=== PATIENT | female | born 1975 | race Caucasian/White ===

== ENCOUNTER → 2016-10-20 | Outpatient (CLI) | payer BC ==
--- NOTE | 2016-10-23 10:22 | MM ---
Reason for exam: screening (asymptomatic). Last mammogram was performed 1 year ago. History: Patient is nulliparous. Family history of breast cancer in paternal grandmother at age 80 and breast cancer in maternal grandmother. Benign US RT VAD breast biopsy of the right breast, August 14, 2011. Taking hormonal contraceptives for 17 years beginning at age 19. Physical Findings: A clinical breast exam by your physician is recommended on an annual basis and results should be correlated with mammographic findings. MG 3D Screening Mammo W/Cad Bilateral CC and MLO view(s) were taken. Prior study comparison: October 15, 2015, bilateral MG 3d screening mammo w/cad. September 15, 2014, bilateral MG screening mammo w CAD. Benign calcifications.There is chronic nodularity bilaterally. Reduction mammoplasty changes. No significant changes when compared with prior studies. ASSESSMENT: Benign, BI-RAD 2 RECOMMENDATION: Routine screening mammogram of both breasts in 1 year.
== END | disposition home or self-care (01) ==
LOC: RADMAMWWP 16:20
PROVIDERS: ATTEND Obstetrics & Gynecology
DX: Z12.31 Encounter for screening mammogram for malignant neoplasm of breast (principal); Z80.3 Family history of malignant neoplasm of breast
CPT/HCPCS: 77063; G0202

== ENCOUNTER → 2017-11-20 | Outpatient (CLI) | payer BC ==
--- NOTE | 2017-11-21 10:02 | MM ---
Reason for exam: screening (asymptomatic). Last mammogram was performed 1 year and 1 month ago. History: Patient is nulliparous. Family history of breast cancer in paternal grandmother at age 80 and breast cancer in maternal grandmother. Benign US RT VAD breast biopsy of the right breast, August 14, 2011. Taking hormonal contraceptives for 17 years beginning at age 19. Physical Findings: A clinical breast exam by your physician is recommended on an annual basis and results should be correlated with mammographic findings. MG 3D Screening Mammo W/Cad Bilateral CC and MLO view(s) were taken. Prior study comparison: October 20, 2016, bilateral MG 3d screening mammo w/cad. October 15, 2015, bilateral MG 3d screening mammo w/cad. The breast tissue is heterogeneously dense. This may lower the sensitivity of mammography. Focal asymmetry inner left CC view 3.9cm from nipple. This finding is changed when compared with previous exams. ASSESSMENT: Incomplete: need additional imaging evaluation, BI-RAD 0 RECOMMENDATION: Special view mammogram of the left breast. If lesion persists on supplemental views, image directed ultrasound is recommended. [facility] will attempt to contact patient to return for supplemental views and ultrasound if indicated.
== END | disposition home or self-care (01) ==
LOC: RADMAMWWP 07:25
PROVIDERS: ATTEND Obstetrics & Gynecology
DX: Z12.31 Encounter for screening mammogram for malignant neoplasm of breast (principal); Z80.3 Family history of malignant neoplasm of breast
CPT/HCPCS: 77063; 77067

== ENCOUNTER → 2017-11-28 | Outpatient (CLI) | payer BC ==
--- NOTE | 2017-11-28 09:19 | MM ---
Reason for exam: additional evaluation requested from abnormal screening. Last mammogram was performed less than 1 month ago. History: Patient is nulliparous. Family history of breast cancer in paternal grandmother at age 80 and breast cancer in maternal grandmother. Reductions of both breasts, 2016. Benign US RT VAD breast biopsy of the right breast, August 14, 2011. Taking hormonal contraceptives for 17 years beginning at age 19. Physical Findings: Nurse did not find any significant physical abnormalities on exam. MG 3D Work Up W/Cad LT Spot compression CC and ML view(s) were taken of the left breast. Prior study comparison: November 20, 2017, bilateral MG 3d screening mammo w/cad. October 20, 2016, bilateral MG 3d screening mammo w/cad. The breast tissue is heterogeneously dense. This may lower the sensitivity of mammography. No suspicious abnormality. The previous seen medial asymmetry on the left resolves on additional views and appears as fibroglandular tissue. These results were verbally communicated with the patient and result sheet given to the patient on 11/28/17. ASSESSMENT: Benign, BI-RAD 2 RECOMMENDATION: Return to routine screening mammogram schedule for both breasts.
== END | disposition home or self-care (01) ==
LOC: RADMAMWWP 07:32
PROVIDERS: ATTEND Obstetrics & Gynecology
DX: R92.8 Other abnormal and inconclusive findings on diagnostic imaging of breast (principal)
CPT/HCPCS: 77061; 77065

== ENCOUNTER → 2018-11-26 | Outpatient (CLI) | payer BC ==
[2018-11-26 16:25] LABS: Basophils % (A) 0 %; Eosinophils # (A) 0.2 k/uL (0-0.7); Eosinophils % (A) 2 %; HCT 41.9 % (34.0-46.0); HGB 13.6 gm/dL (11.4-16.0); Lymphocytes # (A) 2.1 k/uL (1.0-4.8); Lymphocytes % (A) 23 %; MCH 30.4 pg (25.0-35.0); MCHC 32.3 g/dL (31.0-37.0); Mean Platelet Volume 7.5; Monocytes # (A) 0.4 k/uL (0-1.0); Monocytes % (A) 5 %; Neutrophils # (A) 6.1 k/uL (1.3-7.7); Neutrophils % (A) 68 %; Platelet Count 241 k/uL (150-450); RBC 4.46 m/uL (3.80-5.40); RDW 14.5 % (11.5-15.5)
== END | disposition home or self-care (01) ==
LOC: LABPAT 14:49
PROVIDERS: ATTEND Obstetrics & Gynecology
DX: Z01.812 Encounter for preprocedural laboratory examination (principal); N93.8 Other specified abnormal uterine and vaginal bleeding
CPT/HCPCS: 36415; 85025

== ENCOUNTER 2018-12-09 08:52 | Day surgery (SDC) | payer BC ==
[2018-12-04 15:55] VITALS: BMI 34.2
--- NOTE | 2018-12-06 10:41 | P.HPOB ---
History of Present Illness H&P Date: 12/06/18 Chief Complaint: Menorrhagia This is a 43-year-old 1 para 0010 woman with menorrhagia and dysmenorrhea. She divide desires surgical management in the form of hysteroscopy with NovaSure endometrial ablation. Endometrial biopsy was benign proliferative endometrium. Pelvic ultrasound showed a possible less than 1 cm endometrial polyp versus clot in the endometrial canal. Adnexa otherwise normal. She is not currently sexually active and uses nothing for contrace ption. Review of Systems Constitutional: Denies chills, Denies fever Cardiovascular: Denies chest pain, Denies shortness of breath Respiratory: Denies cough Gastrointestinal: Denies abdominal pain, Denies BRBPR, Denies constipation, Denies diarrhea, Denies nausea, Denies vomiting Genitourinary: Reports dysmenorrhea, Reports menorrhagia, Denies dysuria, Denies flank pain, Denies hematuria Menstruation: Reports menses 1-7 days, Reports period heavy Integumentary: Denies rash Neurological: Denies headaches Psychiatric: Denies anxiety, Denies depression Hematologic/Lymphatic: Denies easy bleeding, Denies easy bruising Past Medical History Past Medical History: Thyroid Disorder Additional Past Medical History / Comment(s): heavy periods History of Any Multi-Drug Resistant Organisms: None Reported Past Surgical History: Breast Surgery Additional Past Surgical History / Comment(s): breast reduction, breast biopsy, cyst removed from back, oral surgery Past Anesthesia/Blood Transfusion Reactions: No Reported Reaction Smoking Status: Current every day smoker - Past Family History Mother Family Medical History: No Reported History Medications and Allergies Home Medications Medication Instructions Recorded Confirmed Type Levothyroxine Sodium [Synthroid] 25 mcg PO DAILY 12/04/18 12/04/18 History Multivitamin [Multivitamins Adult 1 each PO DAILY 12/04/18 12/04/18 History Gummies] [place]-3 Fatty Acids/Fish Oil [Fish 1 each PO DAILY 12/04/18 12/04/18 History Oil 1,000 mg Softgel] Vitamin B Complex 1 each PO DAILY 12/04/18 12/04/18 History Allergies Allergy/AdvReac Type Severity Reaction Status Date / Time doxycycline Allergy Rash/Hives Verified 12/04/18 15:48 Penicillins Allergy Rash/Hives Verified 12/04/18 15:48 sulfamethoxazole Allergy Rash/Hives Verified 12/04/18 15:48 [From Bactrim] trimethoprim [From Bactrim] Allergy Rash/Hives Verified 12/04/18 15:48 adhesive tape AdvReac red skin, Verified 12/04/18 15:48 pulls skin off Exam This is a pleasant, female in no acute distress. HEENT exam is unremarkable. The lungs are clear to auscultation bilaterally and the heart is regular rate and rhythm. The abdomen is slim, soft and nontender with no rebound no guarding and no flank pain. On pelvic examination she has normal female external genitalia without lesions or irritation. The uterus is small, freely mobile and in the midline with no adnexal masses palpable. The extremities are free of any rashes, gross lesions or edema. She is neurologically intact. Mood and affect are appropriate. Assessment and Plan (1) Menorrhagia Status: Acute Code(s): N92.0 - EXCESSIVE AND FREQUENT MENSTRUATION WITH REGULAR CYCLE SNOMED Code(s): 552055066 (2) Dysmenorrhea Status: Acute Code(s): N94.6 - DYSMENORRHEA, UNSPECIFIED SNOMED Code(s): 501558515 Plan: This is a 43-year-old 1 para 0 woman with menorrhagia who desires surgical management in the form of NovaSure endometrial ablation. She is scheduled on 12/09/2018 to undergo diagnostic hysteroscopy with NovaSure endometrial ablation. The patient understands this is not a contraceptive procedure and the is not a 5 following this procedure. If and when she becomes sexually active she will need to use a reliable form of contraception. Patient understands this. Risks of the procedure otherwise were reviewed and include bleeding, transfusion, infection, damage to uterus including uterine perforation with possible damage to intrapelvic structures. The patient and her stances risks and agrees to proceed.
[~2018-12-09 08:52] MED LIST: DEXAMETHASONE SOD PHOSPHATE 10 MG/ML 1 ML VIAL IV ONE; LACTATED RINGERS 1,000 ML IV SCH; LIDOCAINE 1% 20 ML VIAL (10MG/ML) FOR IV START INTRADERMA PRN; MIDAZOLAM 2 MG/2 ML VIAL IV PRN; ONDANSETRON 4 MG/2 ML VIAL IVP ONE; Pre Op ABX Message 1 EACH MISC MISCELLANE ONE
[2018-12-09] MEDS ORDERED: LIDOCAINE 1% INJ 10MG/ML (20 ML MDV) ONE (10:08)
[2018-12-09] MEDS ORDERED: MIDAZOLAM 2 MG/2 ML VIAL ONE (10:08)
[2018-12-09] MEDS ORDERED: KETOROLAC 30 MG/ML 1 ML VIAL ONE (10:08)
[2018-12-09] MEDS ORDERED: fentaNYL (PF) 50 MCG/ML 2 ML AMP ONE (10:08)
[2018-12-09] MEDS ORDERED: PROPOFOL 10 MG/ML 20 ML VIAL IV ONE (10:08)
--- NOTE | 2018-12-09 10:37 | P.OP ---
Date of Procedure: 12/09/18 Preoperative Diagnosis: Menorrhagia Postoperative Diagnosis: Same Procedure(s) Performed: Diagnostic hysteroscopy with NovaSure endometrial ablation Anesthesia: MAC Surgeon: Alondra Albright Estimated Blood Loss (ml): 0 IV fluids (ml): 400 Urine output (ml): 25 Pathology: none sent Condition: stable Disposition: PACU Indications for Procedure: Menorrhagia Operative Findings: Normal appearing endometrial cavity without evidence of gross intracavitary lesions Description of Procedure: After the patient was met in the preoperative holding area and all questions were answered, she was taken to the operating room where anesthetic was administered without incident. She was in positioned, prepped and draped in the dorsal lithotomy position. Appropriate timeout procedure was undertaken. The bladder was drained for approximately 25 mL of clear urine. Weighted speculum was placed in the vagina and the cervix was grasped anteriorly with a single- tooth tenaculum. Uterus is sounded to 8 cm. The cervix was then sequentially dilated with Hegar dilators to allow for passage of the diagnostic hysteroscope. The hysteroscope was introduced and the above findings were noted. The hysteroscope was removed and the cervix was further dilated to allow for passage of the NovaSure ablation device. The device was inserted with a cavity length of 4 cm, width of 3.6 cm. Cavity assessment was passed. The device was enabled for a treatment cycle was 77 seconds at a power of 79 W. Following cessation of the treatment cycle the device was removed. The hysteroscope was reintroduced and complete desiccation of the endometrium was appreciated. All instructions were then removed from the cervix and vagina. No active bleeding was noted from the cervix. The patient was awoken from anesthetic without incident and transported recovery in stable condition. All counts reported to me as correct.
[2018-12-09] MEDS: fentaNYL (PF) 50 MCG/ML 2 ML AMP IV PRN ×2 (10:46→11:07)
[2018-12-09 10:55] VITALS: TEMP 98
[2018-12-09 11:07] VITALS: RESP 16
[2018-12-09] MEDS ORDERED: diphenhydrAMINE 50 MG/ML 1 ML VIAL IVP ONE (11:12)
[2018-12-09 11:48] VITALS: BP 110/75; PULSE 71
== END 2018-12-09 12:19 | disposition home or self-care (01) ==
LOC: OR 08:52
PROVIDERS: ATTEND Obstetrics & Gynecology
DX: N92.0 Excessive and frequent menstruation with regular cycle (principal); N94.6 Dysmenorrhea, unspecified; E07.9 Disorder of thyroid, unspecified; F17.210 Nicotine dependence, cigarettes, uncomplicated; Z79.890 Hormone replacement therapy; Z88.1 Allergy status to other antibiotic agents; Z88.0 Allergy status to penicillin; Z88.2 Allergy status to sulfonamides; Z91.09 Other allergy status, other than to drugs and biological substances
CPT/HCPCS: 81025; 58563; J2250; J1200; J1100; J2405; J2001; J3010; J1885; J2704

== ENCOUNTER → 2018-12-11 | Outpatient (CLI) | payer BC ==
--- NOTE | 2018-12-12 13:13 | MM ---
Reason for exam: screening (asymptomatic). Last mammogram was performed 1 year ago. History: Patient is nulliparous. Family history of breast cancer in paternal grandmother at age 80 and breast cancer in maternal grandmother. Reductions of both breasts, 2016. Benign US RT VAD breast biopsy of the right breast, August 14, 2011. Taking hormonal contraceptives for 17 years beginning at age 19. Physical Findings: A clinical breast exam by your physician is recommended on an annual basis and results should be correlated with mammographic findings. MG 3D Screening Mammo W/Cad Bilateral CC and MLO view(s) were taken. Prior study comparison: November 28, 2017, left breast MG 3d work up w/cad LT. November 20, 2017, bilateral MG 3d screening mammo w/cad. The breast tissue is heterogeneously dense. This may lower the sensitivity of mammography. There is a lobulated 4.8cm right upper inner quadrant mass spanning anterior and middle depth. Ultrasound will be performed. Benign appearing bilateral calcifications. No suspicious abnormality on the left breast. ASSESSMENT: Incomplete: need additional imaging evaluation, BI-RAD 0 RECOMMENDATION: Ultrasound of the right breast. (upper inner quadrant) [facility] will attempt to contact patient to return for ultrasound.
== END | disposition home or self-care (01) ==
LOC: RADMAMWWP 10:10
PROVIDERS: ATTEND Obstetrics & Gynecology
DX: Z12.31 Encounter for screening mammogram for malignant neoplasm of breast (principal); Z80.3 Family history of malignant neoplasm of breast
CPT/HCPCS: 77063; 77067

== ENCOUNTER → 2018-12-26 | Outpatient (CLI) | payer BC ==
--- NOTE | 2018-12-26 13:28 | USB ---
Reason for exam: additional evaluation requested from abnormal screening. History: Patient is nulliparous. Family history of breast cancer in paternal grandmother at age 80 and breast cancer in maternal grandmother. Reductions of both breasts, 2016. Benign US RT VAD breast biopsy of the right breast, August 14, 2011. Taking hormonal contraceptives for 17 years beginning at age 19. Physical Findings: Nurse did not find any significant physical abnormalities on exam. US Breast Workup Limited RT Right limited breast ultrasound including focal area of concern, retroareolar and axilla demonstrates a 0.9 x 1.7 x 0.3cm irregular, hypoechoic lesion at 12 o'clock, this may account for distortion on mammogram, correlate with post mammogramphic clip and a 3.4 x 3.1 x 1.3cm multicystic area with dense tissue at 11 o'clock, 12 o'clock, 1 o'clock and 2 o'clock. These results were verbally communicated with the patient and result sheet given to the patient on 12/26/18. ASSESSMENT: Suspicious, BI-RAD 4 RECOMMENDATION: Ultrasound core biopsy of the right breast. Called Dr. Albright with mammographic findings and has scheduled an appointment for the patient for 02/06/19 at 10:[address] Blackburn. Biopsy scheduled for 01/08/19 at 9 o'clock. PRELIMINARY REPORT CALLED AND FAXED TO DR. BLACKBURN ON 12/26/18.
== END | disposition home or self-care (01) ==
LOC: RADUSWWP 08:15
PROVIDERS: ATTEND Obstetrics & Gynecology
DX: R92.8 Other abnormal and inconclusive findings on diagnostic imaging of breast (principal)

== ENCOUNTER → 2019-01-08 | Day surgery (SDC) | payer BC ==
[2019-01-08 08:16] VITALS: RESP 16
[2019-01-08 09:42] VITALS: BP 102/75; PULSE 63; TEMP 98.2
--- NOTE | 2019-01-08 10:16 | USB ---
EXAMINATION TYPE: US biopsy breast VAD RT, MG diagnostic mammo RT wo CAD DATE OF EXAM: 01/08/2019 CLINICAL HISTORY: R92.8 Abnormal Mammogram. Abnormal ultrasound. TECHNIQUE: Ultrasound guided core biopsy of right breast with clip placement and follow-up diagnostic two-view mammogram. COMPARISON: Prior right breast ultrasound December 26, 2018. Prior mammogram December 11, 2018 and older mammograms. FINDINGS: The procedure of ultrasound guided core biopsy was explained to the patient. Benefits, alternatives, and risks were discussed. An informed consent was then obtained. The patient was placed in supine positioning for imaging and for the procedure. Preprocedure ultrasound redemonstrates vague 9 x 3 mm hypoechoic area 12:00 position zone A right breast. The overlying skin was prepped and draped in usual sterile fashion. Lidocaine was used as anesthetic into the skin and subcutaneous tissue up to area of concern in the right breast. Under ultrasound guidance, a 12-gauge vacuum assisted biopsy gun device was used to obtain 3 core samples. Following this, a biopsy clip was left in lesion. The patient tolerated the procedure well without any immediate complication. The patient was kept in the radiology department for short stay after the procedure and then discharged home in stable condition. Post procedure mammogram shows successful deployment of clip near area of concern 12:00 position anterior to middle depth right breast. IMPRESSION: Successful, uncomplicated ultrasound guided core biopsy of area of concern in the right breast, full pathology results to follow. Low index of suspicion noted at time of procedure. Area of concern favors focal fibrocystic change. Pathology Results: Benign RIGHT BREAST, ULTRASOUND GUIDED CORE BIOPSY: Fibrocystic change with focal duct ectasia (negative for atypia). Recommendation Follow up mammogram of the right breast in 6 months. [place]
== END ==
LOC: RADUSWWP 07:58
PROVIDERS: ATTEND Surgery
DX: N60.11 Diffuse cystic mastopathy of right breast (principal); N60.41 Mammary duct ectasia of right breast
CPT/HCPCS: 19083; 88305; 77065; A4648; J2001

== ENCOUNTER → 2019-07-15 | Outpatient (CLI) | payer BC ==
--- NOTE | 2019-07-15 09:00 | MM ---
Reason for exam: follow-up at short interval from prior study. Last mammogram was performed 6 months ago. History: Patient is nulliparous. Family history of breast cancer in paternal grandmother at age 80 and breast cancer in maternal grandmother. Benign US biopsy breast VAD RT of the right breast, January 08, 2019. Reductions of both breasts, 2016. Benign US RT VAD breast biopsy of the right breast, August 14, 2011. Taking hormonal contraceptives for 17 years beginning at age 19. Physical Findings: Nurse did not find any significant physical abnormalities on exam. MG 3D Diag Mammo W/Cad RT CC, MLO, and XCCL view(s) were taken of the right breast. Prior study comparison: January 08, 2019, right breast MG diagnostic mammo RT wo CAD. December 11, 2018, bilateral MG 3d screening mammo w/cad. The breast tissue is heterogeneously dense. This may lower the sensitivity of mammography. Benign appearing calcifications in the right breast. No new suspicious abnormality. Right biopsy marker noted. These results were verbally communicated with the patient and result sheet given to the patient on 07/15/19. ASSESSMENT: Benign, BI-RAD 2 RECOMMENDATION: Return to routine screening mammogram schedule for both breasts. Back on schedule for November 2019.
== END | disposition home or self-care (01) ==
LOC: RADMAMWWP 08:25
PROVIDERS: ATTEND Surgery
DX: R92.8 Other abnormal and inconclusive findings on diagnostic imaging of breast (principal)
CPT/HCPCS: 77061; 77065

== ENCOUNTER → 2020-08-25 | Outpatient (CLI) | payer BC ==
--- NOTE | 2020-08-25 13:46 | MM ---
Reason for exam: follow-up at short interval from prior study. Last mammogram was performed 6 months ago. History: Patient is nulliparous. Family history of breast cancer in paternal grandmother at age 80 and breast cancer in maternal grandmother. Benign US biopsy breast VAD RT of the right breast, January 08, 2019. Reductions of both breasts, 2016. Benign US RT VAD breast biopsy of the right breast, August 14, 2011. Took hormonal contraceptives for 20 years beginning at age 19. Physical Findings: Nurse did not find any significant physical abnormalities on exam. MG 3D Diag Mammo W/Cad LT CC, MLO, XCCL, and LM view(s) were taken of the left breast. Prior study comparison: February 12, 2020, bilateral MG 3d diag mammo w/cad [facility]. July 15, 2019, right breast MG 3d diag mammo w/cad RT. December 11, 2018, bilateral MG 3d screening mammo w/cad. November 20, 2017, bilateral MG 3d screening mammo w/cad. The breast tissue is heterogeneously dense. This may lower the sensitivity of mammography. Course posterior upper outer quadrant calcifications possible developing fat necrosis, new from 2019. Continued short term follow up recommended. Post reduction mammoplasty changes. These results were verbally communicated with the patient and result sheet given to the patient on 08/25/20. ASSESSMENT: Incomplete: need additional imaging evaluation, BI-RAD 0 RECOMMENDATION: Ultrasound of both breasts.
--- NOTE | 2020-08-25 13:50 | USB ---
Reason for exam: additional evaluation requested from abnormal screening. History: Patient is nulliparous. Family history of breast cancer in paternal grandmother at age 80 and breast cancer in maternal grandmother. Benign US biopsy breast VAD RT of the right breast, January 08, 2019. Reductions of both breasts, 2016. Benign US RT VAD breast biopsy of the right breast, August 14, 2011. Took hormonal contraceptives for 20 years beginning at age 19. US Breast Limited BILAT Right limited breast ultrasound including focal area of concern, retroareolar and axilla demonstrates a 4.3cm tubular hypoechoic area with internal vascularity seen at 8 o'clock for which a biopsy is recommended and a 2.0 x 1.3 x 0.8cm cystic lesion at the nipple. Left limited breast ultrasound including focal area of concern, retroareolar and axilla demonstrates a 2.5cm tubular hypoechoic area, no vascularity at 5 o'clock for which a 6 month follow up is recommended and a 0.5 x 0.6 x 0.3cm likely cystic cluster at 5 o'clock. These results were verbally communicated with the patient and result sheet given to the patient on 08/25/20. ASSESSMENT: Suspicious, BI-RAD 4 RECOMMENDATION: Ultrasound core biopsy of the right breast. (8 o'clock) Called Dr. Albright's office with mammographic findings and has scheduled an appointment for the patient for 10/13/20 at 09/30/[address] Blackburn. Biopsy scheduled for 09/08/20 at 9:30. PRELIMINARY REPORT CALLED AND FAXED TO DR. BLACKBURN ON 08/25/20.
== END | disposition home or self-care (01) ==
LOC: RADMAMWWP 08:19
PROVIDERS: ATTEND Obstetrics & Gynecology
DX: R92.8 Other abnormal and inconclusive findings on diagnostic imaging of breast (principal)
CPT/HCPCS: 77061; 77065

== ENCOUNTER → 2020-09-08 | Day surgery (SDC) | payer BC ==
[2020-09-08 09:49] VITALS: RESP 16
[2020-09-08 11:17] VITALS: BP 112/79; PULSE 86; TEMP 98.7
--- NOTE | 2020-09-08 15:41 | MM ---
EXAMINATION TYPE: US biopsy breast VAD RT DATE OF EXAM: 09/08/2020 CLINICAL HISTORY: R92.8 abnormal mammogram. TECHNIQUE: Ultrasound guided vaccuum assisted core biopsy of right breast. COMPARISON: 08/25/2020 FINDINGS: The ultrasound guided core biopsy procedure was explained to the patient. The risks, benef its, alternatives were discussed. An informed consent was then obtained. Timeout was performed. The patient was placed in supine positioning for imaging and for the procedure. The overlying skin w as prepped with betadine and sterilely draped in usual sterile fashion. Lidocaine 1% was used as ane sthetic into the skin and deeper breast tissue up to area of concern in the breast. A small skin ru k was made with surgical scalpel. Under ultrasound guidance, a 12-gauge vacuum assisted biopsy device was used to obtain 4 core samples . A biopsy clip was left in lesion. Ribbon clip was placed. Findings expected are dilated duct with papilloma. Correlate with the pathology findings. This is superficial below the skin surface. Good hemostasis was obtained with direct pressure. Discharge instructions were discussed with the priscila christianson. The patient will follow up with the referring physician for results. Postprocedure mammogram: The patient was transferred to mammography for physician ordered post proced ure mammogram for clip placement verification. The clip is in the expected region of the biopsy. The patient tolerated the procedure well without any immediate complication. The patient was dischar ged to home in stable condition. IMPRESSION: 1. Successful ultrasound guided biopsy right breast. Recommendations: 1. Recommendations are pending pathology results.
== END ==
LOC: RADUSWWP 09:35
PROVIDERS: ATTEND Surgery
DX: N60.11 Diffuse cystic mastopathy of right breast (principal); R92.8 Other abnormal and inconclusive findings on diagnostic imaging of breast; Z88.1 Allergy status to other antibiotic agents; Z88.0 Allergy status to penicillin; Z88.2 Allergy status to sulfonamides
CPT/HCPCS: 88305; 77065; 19083; A4648

== ENCOUNTER → 2021-04-08 | Outpatient (CLI) | payer BC ==
--- NOTE | 2021-04-08 09:34 | MM ---
Reason for exam: additional evaluation requested from prior study. Last mammogram was performed 7 months ago. History: Patient is nulliparous. Family history of breast cancer in paternal grandmother at age 80 and breast cancer in maternal grandmother. Benign US biopsy breast VAD RT of the right breast, September 08, 2020. Benign US biopsy breast VAD RT of the right breast, January 08, 2019. Reductions of both breasts, 2016. Benign US RT VAD breast biopsy of the right breast, August 14, 2011. Took hormonal contraceptives for 20 years beginning at age 19. Physical Findings: Nurse did not find any significant physical abnormalities on exam. MG 3D Diag Mammo W/Cad [facility] Bilateral CC, MLO, and XCCL view(s) were taken. Prior study comparison: September 08, 2020, right breast MG diagnostic mammo RT wo CAD. August 25, 2020, left breast MG 3d diag mammo w/cad LT. The breast tissue is heterogeneously dense. This may lower the sensitivity of mammography. There is chronic nodularity bilaterally. These results were verbally communicated with the patient and result sheet given to the patient on 04/08/21. ASSESSMENT: Incomplete: need additional imaging evaluation, BI-RAD 0 RECOMMENDATION: Ultrasound of both breasts.
--- NOTE | 2021-04-08 09:37 | USB ---
Reason for exam: additional evaluation requested from abnormal screening. History: Patient is nulliparous. Family history of breast cancer in paternal grandmother at age 80 and breast cancer in maternal grandmother. Benign US biopsy breast VAD RT of the right breast, September 08, 2020. Benign US biopsy breast VAD RT of the right breast, January 08, 2019. Reductions of both breasts, 2016. Benign US RT VAD breast biopsy of the right breast, August 14, 2011. Took hormonal contraceptives for 20 years beginning at age 19. US Breast Limited BILAT Right limited breast ultrasound including focal area of concern, retroareolar and axilla demonstrates a 2.4cm tubular, hypoechoic area at 8 o'clock, a 1.0 x 0.4 x 0.8cm mixed lesion at 9 o'clock and a 2.1 x 1.0 x 1.1cm cystic lesion at the posterior nipple. Left limited breast ultrasound including focal area of concern, retroareolar and axilla demonstrates a 1.0cm tubular, hypoechoic area at 5 o'clock and a 0.5 x 0.3 x 0.4cm cystic cluster at 5 o'clock. These results were verbally communicated with the patient and result sheet given to the patient on 04/08/21. ASSESSMENT: Benign, BI-RAD 2 RECOMMENDATION: Routine screening mammogram of both breasts in 6 months. Back on schedule.
== END | disposition home or self-care (01) ==
LOC: RADMAMWWP 06:57
PROVIDERS: ATTEND Surgery
DX: R92.8 Other abnormal and inconclusive findings on diagnostic imaging of breast (principal)
CPT/HCPCS: 77062; 77066

== ENCOUNTER 2021-05-27 09:21 | Day surgery (SDC) | payer BC ==
[2021-05-25 13:11] VITALS: BMI 37.5
[~2021-05-27 09:21] MED LIST changes: -DEXAMETHASONE SOD PHOSPHATE 10 MG/ML 1 ML VIAL IV ONE; -LIDOCAINE 1% 20 ML VIAL (10MG/ML) FOR IV START INTRADERMA PRN; -MIDAZOLAM 2 MG/2 ML VIAL IV PRN; -ONDANSETRON 4 MG/2 ML VIAL IVP ONE; -Pre Op ABX Message 1 EACH MISC MISCELLANE ONE
[2021-05-27 10:17] VITALS: RESP 16; TEMP 98.5
[2021-05-27] MEDS ORDERED: PROPOFOL 10 MG/ML 20 ML VIAL IV ONE (10:45)
--- NOTE | 2021-05-27 10:59 | P.PCN ---
Date of Procedure: 05/27/21 Procedure(s) Performed: BRIEF HISTORY: Patient is a 45-year-old pleasant white female scheduled for an elective colonoscopy as a part of the for colorectal neoplasia. Her grandmother was diagnosed with colon cancer at age 60. PROCEDURE PERFORMED: Colonoscopy. PREOPERATIVE DIAGNOSIS: Screening for colon cancer and family history of colon cancer. IV sedation per Anesthesia. PROCEDURE: After informed consent was obtained, the patient, was brought into the endoscopy unit. IV sedation was administered by Anesthesia under continuous monitoring. Digital rectal examination was normal. Initially the Olympus CF-160 flexible video colonoscope was then inserted in the rectum, gradually advanced into the cecum without any difficulty. Careful examination was performed as the scope was gradually being withdrawn. Ileocecal valve and the appendiceal orifice were visualized and appeared normal. Prep was excellent. Mucosa of the cecum, ascending colon, transverse colon, descending colon, sigmoid colon, and rectum appeared normal. Retroflexion was performed in the rectum and no lesions were seen. The patient tolerated the procedure well. IMPRESSION: Normal-appearing colon from rectum to cecum with no evidence of colitis or colorectal neoplasia . RECOMMENDATIONS: Findings of this examination were discussed with the patient as well as her family. She was advised to have a repeat screening colonoscopy in 10 years.
[2021-05-27 11:20] VITALS: BP 112/77; PULSE 82
== END 2021-05-27 11:36 | disposition home or self-care (01) ==
LOC: ORWHC2ENDO 09:21
PROVIDERS: ATTEND Internal Medicine Gastroenterology
DX: Z12.11 Encounter for screening for malignant neoplasm of colon (principal); Z80.0 Family history of malignant neoplasm of digestive organs
CPT/HCPCS: 81025; J2704; G0121

== ENCOUNTER → 2022-01-24 | Outpatient (CLI) | payer BC ==
--- NOTE | 2022-01-24 08:59 | US ---
EXAMINATION TYPE: US abdomen complete DATE OF EXAM: 01/24/2022 COMPARISON: NONE CLINICAL HISTORY: Elevated liver enzymes R74.01. Abnormal labs TECHNIQUE: Multiple sonographic images of the abdomen are obtained. 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 Liver: Enlarged in size, echogenic and heterogenous. Large midline mass, possible left lobe liver = 10.3 x 13.9 x 9.5 cm Gallbladder: wnl Evidence for sonographic Schwab's sign: neg CBD: wnl Spleen: wnl Right Kidney: No hydronephrosis or masses seen Left Kidney: No hydronephrosis or masses seen Upper IVC: Obscured by overlying bowel gas Abd Aorta: limited, unable to visualized distal aorta The intrahepatic portion of the IVC and proximal abdominal aorta are within normal limits. There is no evidence of cholelithiasis. Common bile duct is unremarkable. The visualized portions of the sarmiento creas are homogenous. The spleen is unremarkable. Kidneys are symmetric and free of hydronephrosis. No renal lesions are seen. IMPRESSION: 1. Masslike area left hepatic lobe. Additional evaluation with CT is advised. [address] eatosis with hepatomegaly.
== END | disposition home or self-care (01) ==
LOC: RADUSWWP 08:12
PROVIDERS: ATTEND Family Medicine
DX: R74.01 Elevation of levels of liver transaminase levels (principal)
CPT/HCPCS: 76700

== ENCOUNTER → 2022-10-26 | Outpatient (CLI) | payer BC ==
--- NOTE | 2022-10-27 09:05 | MM ---
Reason for Exam: Screening (asymptomatic). Last screening mammogram was performed 12 month(s) ago. Patient History: Menarche at age 12. Patient has no children. Postmenopausal. Hormonal Contraceptives, starting at age 19 for 20 years. 2016, Bilateral Reduction. 09/08/2020, Benign Core Biopsy on the right side. 01/08/2019, Benign Core Biopsy on the right side. 08/14/2011, Benign Core Biopsy on the right side. Paternal grandmother had breast cancer, age 80. Maternal grandmother had breast cancer. Risk Values: Romina 5 year model risk: 1.9%. NCI Lifetime model risk: 15.3%. Prior Study Comparison: 11/20/2017 Bilateral Screening Mammogram, [facility]. 11/28/2017 Left Diagnostic Mammogram, [facility]. 12/11/2018 Bilateral Screening Mammogram, [facility]. 01/08/2019 Right Diagnostic Mammogram, [facility]. 07/15/2019 Right Diagnostic Mammogram, [facility]. 02/12/2020 Bilateral Diagnostic Mammogram, [facility]. 08/25/2020 Left Diagnostic Mammogram, [facility]. 09/08/2020 Right Diagnostic Mammogram, [facility]. 04/08/2021 Bilateral Diagnostic Mammogram, [facility]. 10/25/2021 Bilateral Screening Mammogram, [facility]. Tissue Density: The breast tissue is heterogeneously dense. This may lower the sensitivity of mammography. Findings: Analyzed By CAD. Stable benign calcifications within both breasts. Chronic nodularity within the right breast. No significant new suspicious mass within the left breast. No suspicious group of calcifications within either breast. Asymmetry demonstrated within the inferior right breast posterior depth only on the MLO view. Overall Assessment: Incomplete: need additional imaging evaluation, BI-RAD 0 Management: Diagnostic Mammogram of the right breast. A clinical breast exam by your physician is recommended on an annual basis and results should be correlated with mammographic findings. [facility] will attempt to contact patient to return for supplemental views and ultrasound if indicated. Electronically signed and approved by: Enzo Yee D.O.
== END | disposition home or self-care (01) ==
LOC: RADMAMWWP 10:15
PROVIDERS: ATTEND Obstetrics & Gynecology
DX: Z12.31 Encounter for screening mammogram for malignant neoplasm of breast (principal); Z78.0 Asymptomatic menopausal state; Z80.3 Family history of malignant neoplasm of breast
CPT/HCPCS: 77063; 77067

== ENCOUNTER → 2022-11-02 | Outpatient (CLI) | payer BC ==
--- NOTE | 2022-11-02 08:14 | MM ---
Reason for Exam: Additional evaluation requested from abnormal screening. Last screening mammogram was performed less than 1 month ago. Patient History: Menarche at age 12. Patient has no children. Postmenopausal. Hormonal Contraceptives, starting at age 19 for 20 years. 2016, Bilateral Reduction. 09/08/2020, Benign Core Biopsy on the right side. 01/08/2019, Benign Core Biopsy on the right side. 08/14/2011, Benign Core Biopsy on the right side. Paternal grandmother had breast cancer, age 80. Maternal grandmother had breast cancer. Risk Values: Romina 5 year model risk: 1.9%. NCI Lifetime model risk: 15.3%. Tissue Density: Right: The breast tissue is heterogeneously dense. This may lower the sensitivity of mammography. Findings: Analyzed By CAD. 2 microclips in the right breast from prior biopsies. Areas of asymmetric density are unchanged. Nodularity in the inferior aspect of the right breast middle to posterior depth becomes less pronounced on spot 3-D images with an appearance similar to patient's prior exams. Overall Assessment: Benign, BI-RAD 2 Management: Screening Mammogram of both breasts in 1 year. . Results were given to the patient verbally at the time of exam. Patient should continue monthly self-breast exams. A clinical breast exam by your physician is recommended on an annual basis. This exam should not preclude additional follow-up of suspicious palpable abnormalities. Note on Romina scores and lifetime risk: 1. A Romina score greater than 3% is considered moderate risk. If this is the case, consider specialist referral to assess eligibility for a risk reducing agent. 2. If overall lifetime risk for the development of breast cancer is 20% or higher, the patient may qualify for future screening with alternating mammogram and breast MRI. Electronically signed and approved by: Dedra Fraga M.D. Radiologist
== END | disposition home or self-care (01) ==
LOC: RADMAMWWP 07:41
PROVIDERS: ATTEND Obstetrics & Gynecology
DX: R92.8 Other abnormal and inconclusive findings on diagnostic imaging of breast (principal); Z78.0 Asymptomatic menopausal state; Z80.3 Family history of malignant neoplasm of breast
CPT/HCPCS: 77061; 77065

== ENCOUNTER → 2023-12-14 | Outpatient (CLI) | payer BC ==
--- NOTE | 2023-12-18 10:02 | MM ---
Reason for Exam: Screening (asymptomatic). Last mammogram was performed 1 year(s) and 1 month(s) ago. Patient History: Menarche at age 12. Patient has no children. Postmenopausal. Hormonal Contraceptives, starting at age 19 for 20 years. 2016, Bilateral Reduction. 09/08/2020, Benign Core Biopsy on the right side. 01/08/2019, Benign Core Biopsy on the right side. 08/14/2011, Benign Core Biopsy on the right side. Paternal grandmother had breast cancer, age 80. Maternal grandmother had breast cancer. Risk Values: Romina 5 year model risk: 1.8%. NCI Lifetime model risk: 14.9%. Prior Study Comparison: 10/25/2021 Bilateral Screening Mammogram, [facility]. 10/26/2022 Bilateral MG 3D screening mammo w/cad, [facility]. 11/02/2022 Right MG 3D work up w/cad RT, [facility]. Tissue Density: The breasts are heterogeneously dense, which may obscure small masses. Findings: Analyzed By CAD. There is no suspicious group of microcalcifications or new suspicious mass in either breast. Benign-appearing calcifications. There is a surgical clip in the right breast. There is nodular appearing breast tissue bilaterally stable. Overall Assessment: Benign, BI-RAD 2 Management: Screening Mammogram of both breasts in 1 year. . Patient should continue monthly self-breast exams. A clinical breast exam by your physician is recommended on an annual basis. This exam should not preclude additional follow-up of suspicious palpable abnormalities. Note on Romina scores and lifetime risk: 1. A Romina score greater than 3% is considered moderate risk. If this is the case, consider specialist referral to assess eligibility for a risk reducing agent. 2. If overall lifetime risk for the development of breast cancer is 20% or higher, the patient may qualify for future screening with alternating mammogram and breast MRI. Electronically signed and approved by: Kirk Pabon M.D. Radiologis
== END | disposition home or self-care (01) ==
LOC: RADMAMWWP 15:27
PROVIDERS: ATTEND Obstetrics & Gynecology
DX: Z12.31 Encounter for screening mammogram for malignant neoplasm of breast (principal); Z78.0 Asymptomatic menopausal state; Z80.3 Family history of malignant neoplasm of breast
CPT/HCPCS: 77063; 77067

== ENCOUNTER → 2025-01-02 | Outpatient (CLI) | payer BC ==
--- NOTE | 2025-01-05 11:24 | MM ---
Reason for Exam: Screening (asymptomatic). Last mammogram was performed 1 year(s) and 1 month(s) ago. Patient History: Menarche at age 12. Patient has no children. Postmenopausal. Hormonal Contraceptives, starting at age 19 for 20 years. 2016, Bilateral Reduction. 09/08/2020, Benign Core Biopsy on the right side. 01/08/2019, Benign Core Biopsy on the right side. 08/14/2011, Benign Core Biopsy on the right side. Paternal grandmother had breast cancer, age 80. Maternal grandmother had breast cancer. Risk Values: Romina 5 year model risk: 1.6%. NCI Lifetime model risk: 14.5%. Prior Study Comparison: 10/26/2022 Bilateral MG 3D screening mammo w/cad, [facility]. 11/02/2022 Right MG 3D work up w/cad RT, [facility]. 12/14/2023 Bilateral MG 3D screening mammo w/cad, [facility]. Tissue Density: The breasts are heterogeneously dense, which may obscure small masses. Findings: Analyzed By CAD. There is no suspicious group of microcalcifications or new suspicious mass in either breast. Biopsy clips appear stable in position. Overall Assessment: Benign, BI-RAD 2 Management: Screening Mammogram of both breasts in 1 year. . Patient should continue monthly self-breast exams. A clinical breast exam by your physician is recommended on an annual basis. This exam should not preclude additional follow-up of suspicious palpable abnormalities. Note on Romina scores and lifetime risk: 1. A Romina score greater than 3% is considered moderate risk. If this is the case, consider specialist referral to assess eligibility for a risk reducing agent. 2. If overall lifetime risk for the development of breast cancer is 20% or higher, the patient may qualify for future screening with alternating mammogram and breast MRI. [facility], , 01/02/2025 10:17 AM. Electronically signed and approved by: Kirk Pabon M.D. Radiologis
== END | disposition home or self-care (01) ==
LOC: RADMAMWWP 09:50
PROVIDERS: ATTEND Family Medicine
DX: Z12.31 Encounter for screening mammogram for malignant neoplasm of breast (principal); R92.333 Mammographic heterogeneous density, bilateral breasts; Z80.3 Family history of malignant neoplasm of breast; Z78.0 Asymptomatic menopausal state; Z92.0 Personal history of contraception
CPT/HCPCS: 77063; 77067